=== PATIENT | male | born 1940 | race Caucasian/White ===

== ENCOUNTER 2019-02-24 15:24 | Inpatient (IN) | payer MEDICARE ==
[~2019-02-24] VITALS: Ht 180.3 cm; Wt 93.8 kg
[2019-02-24 15:28] VITALS: BP 105/58; PULSE 67; TEMP 98.7
[2019-02-24] MEDS ORDERED: AMBIEN 10MG10 MG PO (16:14)
[2019-02-24] MEDS ORDERED: BACTRIM DS 8001 TAB PO (16:17)
[2019-02-24] MEDS ORDERED: PROSCAR 5MG5 MG PO (16:19)
[2019-02-24] MEDS ORDERED: ZANTAC 150MG T150 MG PO (16:20)
[2019-02-24] MEDS ORDERED: ZOCOR 20MG20 MG PO (16:21)
[2019-02-24] MEDS ORDERED: PROZAC 20MG20 MG PO (16:27)
[2019-02-24 16:57] LABS: TROPONIN-I 0.059 ng/mL (0.000-0.035)
[2019-02-24 17:11] LABS: TSH w REFLEX 2.67 uIU/mL (0.465-4.680)
--- NOTE | 2019-02-24 19:08 | NUR ---
PT ADMITTED TO FLOOR AT APPROX 1515. PT WALKED FROM THE EMS GURNEY TO BED IN ROOM WITHOUT ISSUE. PT PLEASENT AND COOPERATIVE WITH CARES. NO C/O PAIN. IV FLUIDS RUNNING, TELE IMPLAMENTED. NO ISSUES OR CONSERNS VOICED.
[2019-02-24 20:00] VITALS: BP 114/60; PULSE 70; TEMP 98.6
--- NOTE | 2019-02-24 21:25 | NUR ---
Patient is awake and alert, just up to shower, shave and brush teeth, was able to do so independently. Denies pain or shortness of breath. Respirations are even and nonlabored. Patient requested ice cream and this was taken to patient.
[2019-02-24 23:20] VITALS: BP 91/40; PULSE 66; TEMP 98.4
[2019-02-25 04:00] VITALS: BP 92/60; PULSE 65; TEMP 98.3
--- NOTE | 2019-02-25 05:23 | NUR ---
IV fluids replaced. Patient is resting in bed soundly. Respirations are even and nonlabored. Call light and personal belongings are within reach.
[2019-02-25 06:20] LABS: BASO % 0.4 % (0.0-2.0); EOS % 0.6 % (0-4.0); GRAN % 86.6 % (42.2-75.2); HEMATOCRIT 38.9 % (42.0-52.0); HEMOGLOBIN 13.6 g/dl (13.5-18.0); LYMPH # 0.5 (1.2-3.4); LYMPH % 6.7 % (20.0-51.0); MEAN CELL VOLUME 90 fl (80.0-100.0); MEAN CORPUSCULAR HEMOGLOBIN 32 pg (27.0-31.0); MEAN CORPUSCULAR HGB CONC 35 g/dl (33.0-37.0); MEAN PLATELET VOLUME 9.4 fl (7.4-10.4); MONO # 0.4 (0.1-0.6); MONO % 5.1 % (1.7-9.3); PLATELET COUNT 90 K/mm3 (130-400); RED BLOOD COUNT 4.31 M/mm3 (4.20-5.60); REDCELL DISTRIBUTION WIDTH-CV 12.6 % (11.5-14.5)
--- NOTE | 2019-02-25 06:27 | NUR ---
Received call from lab reporting positive blood culture for rods. Notified provider asset protection representative, stated he will review later as he received antibiotic yesterday and should cover for 24 hours.
[2019-02-25 06:30] LABS: CALCIUM 8.4 mg/dL (8.4-10.2); CREATININE, serum 1.06 (0.66-1.25); MAGNESIUM 1.6 mg/dL (1.6-2.3); POTASSIUM 3.8 mmol/L (3.4-5.0)
[2019-02-25 06:40] LABS: TROPONIN-I 0.034 ng/mL (0.000-0.035)
[2019-02-25 07:05] VITALS: BP 103/61; PULSE 60; TEMP 98.7
--- NOTE | 2019-02-25 08:00 | NUR ---
Assessment complete. Pt resting in bed, A&O x 4. Breath sounds CTAB. BS active x 4. Pt denies pain at this time. IVF's infusing per orders through right AC site without s/s of complications. POC reviewed with pt. No further needs reported. Call light in reach.
--- NOTE | 2019-02-25 09:09 | NUR ---
PAUL attended clinical rounds. The patient has an infection in the blood. Plan is for a belly scan today. PAUL then followed up with the patient to discuss discharge plan. The patient resides at [facility] in [facility]. He reports independence with ADLs and does not have any DME. The patient's PCP is Dr. Kirti Almonte and he receives his medications at [facility]. He reports no difficulties obtaining his meds. The patient does not have advanced directives in EMR, but he states that he does have them completed and at home. He states his DPOA-HC is his daughter, Elaine Gomes (ph#[phone]). Elaine lives in [place]. The patient plans to return back to [facility] upon discharge. The patient states that he may be interested in getting a walker prior to discharge. PT has been ordered. PAUL contacted and updated Soumya at [facility]. SW to fax updates to [facility] and will continue to follow.
[2019-02-25 11:24] VITALS: BP 132/69; PULSE 61; TEMP 97.7
--- NOTE | 2019-02-25 15:30 | NUR ---
Pt ambulating in hallway with PT, steady gait with walker.
[2019-02-25 16:11] VITALS: BP 127/61; PULSE 65; TEMP 98.3
--- NOTE | 2019-02-25 18:00 | NUR ---
Pt resting in bed, watching TV, denies pain or needs. Call light in reach.
[2019-02-25 20:00] VITALS: BP 129/72; PULSE 68; TEMP 98.1
--- NOTE | 2019-02-25 21:01 | NUR ---
Resting in bed. Assessment completed. Left lower lobe diminished, otherwise clear. Pulses strong throughout. No edema noted. Denies pain at this time. Provided with PRN ambien. Denies other needs. Call light in reach.
--- NOTE | 2019-02-25 23:30 | NUR ---
Resting in bed. Denies needs. Denies pain. Call light in reach.
[2019-02-25 23:33] VITALS: BP 120/73; PULSE 63; TEMP 98.6
[2019-02-26 03:41] VITALS: BP 127/66; PULSE 58; TEMP 98.1
--- NOTE | 2019-02-26 06:19 | NUR ---
Patient bradycardic this AM to 48 for short amount of time. Pulse increased with arousal. No symptoms. Otherwise uneventful night. Resting in bed this AM. Denies needs.
[2019-02-26 06:43] LABS: BASO % 0.5 % (0.0-2.0); EOS # 0.1 (0.0-0.7); EOS % 3.2 % (0-4.0); GRAN % 68.5 % (42.2-75.2); HEMATOCRIT 39.4 % (42.0-52.0); HEMOGLOBIN 13.6 g/dl (13.5-18.0); LYMPH # 0.9 (1.2-3.4); LYMPH % 19.6 % (20.0-51.0); MEAN CELL VOLUME 92 fl (80.0-100.0); MEAN CORPUSCULAR HEMOGLOBIN 32 pg (27.0-31.0); MEAN CORPUSCULAR HGB CONC 35 g/dl (33.0-37.0); MEAN PLATELET VOLUME 9.8 fl (7.4-10.4); MONO # 0.4 (0.1-0.6); PLATELET COUNT 85 K/mm3 (130-400); RED BLOOD COUNT 4.28 M/mm3 (4.20-5.60); REDCELL DISTRIBUTION WIDTH-CV 12.7 % (11.5-14.5)
[2019-02-26 07:01] LABS: CALCIUM 8.4 mg/dL (8.4-10.2); CREATININE, serum 0.93 (0.66-1.25); POTASSIUM 3.8 mmol/L (3.4-5.0)
--- NOTE | 2019-02-26 07:06 | NUR ---
Report given to GERRY Doll.
[2019-02-26 07:53] VITALS: BP 151/80; PULSE 57; TEMP 97.5
[2019-02-26] MEDS ORDERED: LEVAQUIN 5500 MG/TA1 PO (09:31)
--- NOTE | 2019-02-26 10:00 | NUR ---
PT REQUESTED TO TAKE A SHOWER PRIOR TO DISCHARGE. IV AND TELE REMOVED.
--- NOTE | 2019-02-26 10:03 | NUR ---
The patient is to discharge today, 02/26, back to [facility]. SW met with the patient to follow up on his interest of getting a walker and PT's recommendation of front wheeled walker vs four wheeled walker. The patient reports that he has decided to hold off on getting a walker for now. The patient's daughter, Elaine, to provide transportation. PAUL contacted and faxed discharge orders to [facility] at [facility]. No additional needs at this time.
--- NOTE | 2019-02-26 11:04 | NUR ---
First visit from the speech therapy director. No needs right now.
--- NOTE | 2019-02-26 11:30 | NUR ---
DISCHARGE EDUCATION PROVIDED. PT DAUGHTER DID REQUEST MEDS TO BE CALLED INTO [facility] IN [place]. THIS NURSE DID CALL [facility] TO PHARMACY.
--- NOTE | 2019-02-26 11:40 | NUR ---
PT LEAVING FACILITY AT THIS TIME. PT DUAGHTER ACCOMPANING. DENIED NEED FOR STAFF ESCORT.
== END 2019-02-26 11:40 | DRG 682 ==
LOC: MEDICAL 15:24
PROVIDERS: ADMIT Hospitalist
DX: N17.9 Acute kidney failure, unspecified (principal); I21.A1 Myocardial infarction type 2; E87.2 Acidosis; I48.0 Paroxysmal atrial fibrillation; E78.5 Hyperlipidemia, unspecified; K21.9 Gastro-esophageal reflux disease without esophagitis; F32.9 Major depressive disorder, single episode, unspecified; N40.0 Benign prostatic hyperplasia without lower urinary tract symptoms; G47.00 Insomnia, unspecified; D72.819 Decreased white blood cell count, unspecified; D47.3 Essential (hemorrhagic) thrombocythemia; R79.1 Abnormal coagulation profile
CPT/HCPCS: 99232-AI; 99239; G0378; G0379; J0744; J1650; J7030; Q9967

== ENCOUNTER → 2019-03-10 | Outpatient (REF) ==
[~2019-03-10] MED LIST: AMBIEN 10MG10 MG PO; BACTRIM DS 8001 TAB PO; LEVAQUIN 5500 MG/TA1 PO; PROSCAR 5MG5 MG PO; PROZAC 20MG20 MG PO; ZANTAC 150MG T150 MG PO; ZOCOR 20MG20 MG PO
== END ==
LOC: COL.CARD 11:35
DX: Z01.818 Encounter for other preprocedural examination (principal)

== ENCOUNTER 2020-12-07 13:46 | Inpatient (IN) | payer MEDICARE ==
[~2020-12-07] VITALS: Ht 180.3 cm; Wt 89.3 kg
[2020-12-07] VITALS (11 sets, daily range): BP systolic 131–149; BP diastolic 76–90; PULSE 56–83; TEMP 97.1–98
[~2020-12-07 13:46] MED LIST changes: +ASPIRIN 81M81 MG/TA2 PO; +LIPITOR 40MG TA40 MG PO
[2020-12-07] MEDS ORDERED: FLOMAX 0.40.4 MG/CAP PO (15:07)
[2020-12-07] MEDS ORDERED: CEPHALEXIN500 M1 PO (15:08)
[2020-12-07] MEDS ORDERED: EC-NAPROSYN500 MG PO (15:08)
[2020-12-07] MEDS ORDERED: PEPCID 20MG TAB20 MG PO (15:09)
[2020-12-07] MEDS ORDERED: ELIQUIS 5MG PO (15:10)
--- NOTE | 2020-12-07 17:30 | NUR ---
PATIENT ADMITED INTO ROOM 327 POST OP TURP. A&O. VSS. NO C/O PAIN OR NAUSEA. RECINOS TO DD WITH CBI INFUSING AT MOD RATE AND URINE IS PALE YELLOW. IV FLUIDS INFUSING INTO RIGHT HAND IV. HEAD TO TOE ASSESSMENT COMPLETE. PATIENT LOOKING AT MENU WITH FAMILY. ORIENTED TO ROOM. CALL LIGHT IN REACH. NO OTHER NEEDS.
--- NOTE | 2020-12-07 22:12 | NUR ---
PATIENT ON TELEMETRY WITH HR DOWN TO 30'S AND COMPLETE HR BLOCK. DR AYALA MADE AWARE, ORDERED TO CONSULT HOSPITOLIST. HOSPITOLIST PETRA YUEN CONSULTED, EKG ORERED. PATIENT RESTING CONFORTABLY IN BED DENIES ANY CHEST PAIN, DIZZINESS OR PALPITATION. WILL CONTINUE TO MONITOR. VSS.
[2020-12-07 23:12] LABS: BASO % 0.4 % (0.0-2.0); EOS # 0.3 (0.0-0.7); EOS % 4.3 % (0-4.0); GRAN # 3.8 (1.4-6.5); GRAN % 55.3 % (42.2-75.2); HEMATOCRIT 42.7 % (42.0-52.0); HEMOGLOBIN 15.2 g/dl (13.5-18.0); LYMPH # 2.3 (1.2-3.4); LYMPH % 32.6 % (20.0-51.0); MEAN CELL VOLUME 87 fl (80.0-100.0); MEAN CORPUSCULAR HEMOGLOBIN 31 pg (27.0-31.0); MEAN CORPUSCULAR HGB CONC 36 g/dl (33.0-37.0); MEAN PLATELET VOLUME 9.5 fl (7.4-10.4); MONO # 0.5 (0.1-0.6); MONO % 7.1 % (1.7-9.3); PLATELET COUNT 114 K/mm3 (130-400); RED BLOOD COUNT 4.91 M/mm3 (4.20-5.60); REDCELL DISTRIBUTION WIDTH-CV 12.4 % (11.5-14.5)
[2020-12-07 23:31] LABS: ALBUMIN 3.3 gm/dL (3.5-5.0); BILIRUBIN,TOTAL 0.9 mg/dL (0.0-1.0); CREATININE, serum 0.92 (0.66-1.25); MAGNESIUM 1.8 mg/dL (1.6-2.3); POTASSIUM 3.9 mmol/L (3.4-5.0); TOTAL PROTEIN 6.2 gm/dL (6.4-8.2)
[2020-12-07 23:59] LABS: TSH w REFLEX 4.77 uIU/mL (0.465-4.680)
[2020-12-08 03:26] VITALS: BP 128/67; PULSE 51; TEMP 97.5
[2020-12-08 06:58] LABS: CALCIUM 8.5 mg/dL (8.4-10.2); CREATININE, serum 0.78 (0.66-1.25); MAGNESIUM 1.9 mg/dL (1.6-2.3); POTASSIUM 4.6 mmol/L (3.4-5.0)
[2020-12-08 07:30] VITALS: BP 141/70; PULSE 52; TEMP 97.8
--- NOTE | 2020-12-08 08:00 | NUR ---
PATIENT IS A&O. VSS WITH HR IN THE 50'S ON TELE. PATIENT IS NPO FOR PACEMAKER LATER TODAY. IV FLUIDS INFUSING VIA PUMP INTO RIGHT HAND. RECINOS TO DD WITH MOD AMOUNTS OF BLOODY URINE NOTED. CBI INFUSING AT MOD RATE. PLAN IS TO MONITOR AND POTENTIALLY KEEP CBI INFUSING ALL DAY TODAY, WILL MONITOR. HEAD TO TOE ASSESSMENT COMPLETE. AM MEDS GIVEN WITH A FEW SIPS. NO OTHER NEEDS AT THIS TIME. CALL LIGHT IN REACH.
--- NOTE | 2020-12-08 10:30 | NUR ---
PATIENT OUT OF SHOWER. HOSPITALIST TEAM ROUNDING, SEE ORDERS. PATIENT IS STILL NPO FOR PLANNED PACEMAKER LATER TODAY. IV FLUIDS INFUSING VIA PUMP. CBI AT MOD RATE WITH BLOODY URINE NOTED IN RECINOS. PATIENT DOING WELL. NO COMPLAINTS.
--- NOTE | 2020-12-08 10:30 | NUR ---
Initial visit; Patient thanked Funeral Home Assistant for looking in on him and offering God's blessings though declined spiritual care at this time.
--- NOTE | 2020-12-08 11:05 | NUR ---
ECHO AT BEDSIDE.
--- NOTE | 2020-12-08 11:48 | NUR ---
Manager Functional met with the patient to complete intake. The patient lives alone in [facility]. The patient denies DME use and is independent. The patient's PCP is Dr. Kirti Almonte and patient receives medications from [facility] with no difficulties. The patient does not have advanced directives in the EMR but believes they are complete and designate his daughters, Elaine and Debi. The patient is no and Elaine and Debi are his only children. The patient will return home at discharge and Debi will provide transporation. *Discharge disposition: Home
--- NOTE | 2020-12-08 11:52 | NUR ---
PATIENT GOING DOWN TO SENIOR INTEGRATION ARCHITECT FOR PACEMAKER. CONSENT ON CHART. RECINOS EMPTIED AND NEW BAG OF CBI INFUSING. URINE STILL BLOODY, NO CLOTS. PATIENT OFF FLOOR.
[2020-12-08 12:18] VITALS: BP 158/83; PULSE 57
--- NOTE | 2020-12-08 12:19 | NUR ---
SEE MERGE DOCUMENTATION FOR MEDICATION ADMINISTRATION AND INTRA/POST PROCEDURE SEDATION ASSESSMENT.
[2020-12-08 14:10] VITALS: BP 140/67; PULSE 61
--- NOTE | 2020-12-08 14:10 | NUR ---
PATIENT BACK IN ROOM 327 POST PACEMAKER PLACEMENT. LEFT CHEST DRESSING IS CD&I WITH SLING TO LUE. VSS WITH TELE INPLACE. HEAD TO TOE WNL. DAUGHTER AT BEDSIDE. PATIENT LOOKING AT MENU. CALL LIGHT IN REACH.
[2020-12-08 14:25] VITALS: BP 124/71; PULSE 59
[2020-12-08 19:31] VITALS: BP 127/79; PULSE 60; TEMP 98
[2020-12-09 00:01] VITALS: BP 125/76; PULSE 94; TEMP 97.7
[2020-12-09 04:10] VITALS: BP 143/91; PULSE 61; TEMP 98.6
--- NOTE | 2020-12-09 05:35 | NUR ---
PATIENT HAD AN UNEVENTFULL NIGHT. SLEEP WELL ALL NIGHT. CBI WITH LIGHT PINK COLOR URINE. LEFTS CHEST PACEMAKER SITE INTACT WITH NO DRAINAGE, ICE PACK APPLIED. PACING ON TELEMONITOR. VSS. CALL IN REACH. WILL CONTINUE TO MONITOR.
[2020-12-09 09:07] VITALS: BP 141/84; PULSE 65; TEMP 97.6
[2020-12-09 12:02] VITALS: BP 148/73; PULSE 63; TEMP 98.1
--- NOTE | 2020-12-09 13:17 | NUR ---
1230 CATHETER REMOVED ORDERED. PT TOLERATED REMOVAL WELL. IV AND TELE MONITOR REMOVED. DISCHARGE INSTRUCTIONS REVIEWED WITH PT. ALL QUESTIONS ANSWERED. DAUGHTER AT THE BESIDE TO TRANSPORT PT HOME.
== END 2020-12-09 13:00 | disposition home or self-care (01) | DRG 713 ==
LOC: SDCO 13:46 → SURG 17:28 → SDCO 12-08 09:07 → SURG 12-08 09:08 → SDCO 12-08 09:08 → SURG 12-08 09:08
PROVIDERS: Student in an Organized Health Care Education/Training Program; ADMIT Urology
PROC: 0VT08ZZ Resection of Prostate, Via Natural or Artificial Opening Endoscopic (ICD-10-PCS; principal; 2020-12-07 16:00)
DX: N40.1 Benign prostatic hyperplasia with lower urinary tract symptoms (principal); N13.8 Other obstructive and reflux uropathy; I44.2 Atrioventricular block, complete; I25.10 Atherosclerotic heart disease of native coronary artery without angina pectoris; E78.5 Hyperlipidemia, unspecified; J02.9 Acute pharyngitis, unspecified; R00.1 Bradycardia, unspecified; K21.9 Gastro-esophageal reflux disease without esophagitis; D69.6 Thrombocytopenia, unspecified; G47.00 Insomnia, unspecified; F32.9 Major depressive disorder, single episode, unspecified; Z79.899 Other long term (current) drug therapy; Z79.01 Long term (current) use of anticoagulants; Z79.82 Long term (current) use of aspirin
CPT/HCPCS: OP; C1769; C1785; C1894; C1898; J0690; J2250; J2270; J2704; J3010; J3475; J3480; J7030; J7120

== ENCOUNTER 2023-06-28 09:00 | Outpatient (RCR) | payer MEDICARE ==
[~2023-06-28 09:00] MED LIST changes: +CEPHALEXIN500 M1 PO; +EC-NAPROSYN500 MG PO; +ELIQUIS 5MG PO; +FLOMAX 0.40.4 MG/CAP PO; +PEPCID 20MG TAB20 MG PO
== END 2023-07-03 | disposition home or self-care (01) ==
LOC: WSOT
DX: M79.601 Pain in right arm (principal)

== ENCOUNTER 2023-07-05 08:55 | Outpatient (RCR) | payer MEDICARE | END 2023-08-01 | disposition home or self-care (01) | LOC: WSOT | DX: M25.531 Pain in right wrist (principal); M79.601 Pain in right arm ==

== ENCOUNTER 2023-10-05 13:24 | Emergency (ER) | payer MEDICARE ==
[~2023-10-05] VITALS: Ht 180.3 cm; Wt 84.1 kg
[2023-10-05 13:26] VITALS: TEMP 98
[2023-10-05] MEDS ORDERED: NS 1,000 ML IV ONE (13:45)
[2023-10-05 14:33] LABS: BASO % 0.2 % (0.0-2.0); EOS # 0.2 K/mm3 (0.0-0.7); GRAN # 3.5 K/mm3 (1.4-6.5); GRAN % 70.3 % (42.2-75.2); HEMATOCRIT 41.3 % (42.0-52.0); HEMOGLOBIN 14.9 g/dl (13.5-18.0); LYMPH % 19.6 % (20.0-51.0); MEAN CELL VOLUME 88 fl (80.0-100.0); MEAN CORPUSCULAR HEMOGLOBIN 32 pg (27-31); MEAN CORPUSCULAR HGB CONC 36 g/dl (33.0-37.0); MEAN PLATELET VOLUME 9.8 fl (7.4-10.4); MONO # 0.3 K/mm3 (0.1-0.6); MONO % 6.7 % (1.7-9.3); PLATELET COUNT 102 K/mm3 (130-400); RED BLOOD COUNT 4.68 M/mm3 (4.20-5.60); REDCELL DISTRIBUTION WIDTH-CV 12.3 % (11.5-14.5)
[2023-10-05 14:48] LABS: ALBUMIN 3.2 g/dL (3.4-4.8); CALCIUM 9.1 mg/dL (8.4-10.2); CREATININE, serum 0.92 mg/dL (0.72-1.25); POTASSIUM 3.9 mEq/L (3.5-4.5); TOTAL PROTEIN 6.1 g/dl (6.2-8.1)
[2023-10-05] MEDS ORDERED: Iohexol 300 - 100 ML VIAL IV ONE (15:47)
[2023-10-05] MEDS ORDERED: NS 100 ML IV SCH (15:47)
[2023-10-05 16:21] LABS: PH 5.5 (5.0-8.5); URINE APPEARANCE CLEAR (CLEAR/HAZY); URINE BLOOD NEGATIVE (NEGATIVE); URINE COLOR YELLOW (YELLOW); URINE GLUCOSE NEGATIVE (NEGATIVE); URINE KETONE TRACE (NEGATIVE); URINE NITRATE NEGATIVE (NEGATIVE); URINE PROTEIN(semi-quant) NEGATIVE (NEGATIVE)
[2023-10-05 16:27] LABS: COLLECTION METHOD CLEAN CATCH
[2023-10-05 17:13] VITALS: BP 142/78; PULSE 70
== END 2023-10-05 17:15 | disposition home or self-care (01) ==
LOC: COL.ER 13:24
PROVIDERS: Physician Assistant
DX: M54.50 Low back pain, unspecified (principal)
CPT/HCPCS: J7030; Q9967

== ENCOUNTER 2023-11-22 08:31 | Outpatient (RCR) | payer MEDICARE ==
[2023-11-27] MEDS ORDERED: FLEXERIL 1010 MG/TAB PO (09:48)
[2023-11-27] MEDS ORDERED: PERCOCET 325 MG1 TA2 PO (09:48)
[2023-11-29] MEDS ORDERED: ENTRESTO 24 MG1 EACH PO (03:30)
[2023-11-29] MEDS ORDERED: CRESTOR 10MG10 MG PO (03:32)
[2023-11-29] MEDS ORDERED: ASPIRIN 81M81 MG/TA2 PO (03:32)
[2023-11-29] MEDS ORDERED: FLONASE NASAL S16 GM NS (03:34)
[2023-11-29] MEDS ORDERED: PEPCID40 MG PO (03:34)
[2023-11-29] MEDS ORDERED: DOXYCYCLINE 10100 MG PO (03:35)
[2023-12-01] MEDS ORDERED: PERCOCET 325 MG1 TA2 PO (09:12)
[2023-12-02] MEDS ORDERED: ASPI325T6 PO (09:04)
[2023-12-02] MEDS ORDERED: VITAMIN C500 MG PO (09:05)
[2023-12-02] MEDS ORDERED: OSCAL 500 TAB500 MG PO (09:05)
[2023-12-02] MEDS ORDERED: DUO-KAPS1 CAP PO (09:06)
[2023-12-02] MEDS ORDERED: TOPROL XL 25MG25 MG PO (09:08)
[2023-12-02] MEDS ORDERED: TYLENOL 500MG500 MG PO (09:10)
[2023-12-02] MEDS ORDERED: SENEXON-S 50-81 EACH PO (09:11)
[2023-12-02] MEDS ORDERED: ROXICODONE 55 MG/TAB PO ×2 (09:12→13:08)
[2023-12-02] MEDS ORDERED: DAZIDOX10 MG PO (09:13)
== END 2023-12-01 ==
LOC: WSPT
DX: M54.2 Cervicalgia (principal)

== ENCOUNTER 2023-11-29 01:52 | Inpatient (IN) | payer MEDICARE ==
[2023-11-29] VITALS (12 sets, daily range): BP systolic 99–146; BP diastolic 62–88; PULSE 71–95; TEMP 97.7–98.7
[~2023-11-29] VITALS: Ht 180.3 cm; Wt 79.5 kg
[~2023-11-29 01:52] MED LIST changes: +FLEXERIL 1010 MG/TAB PO; +PERCOCET 325 MG1 TA2 PO
[2023-11-29] MEDS ORDERED: NS 500 ML IV ONE (02:15)
[2023-11-29] MEDS ORDERED: fentaNYL 50 MCG/ML 2 ML VIAL IV ONE (02:15)
[2023-11-29 02:24] LABS: BASO % 0.3 % (0.0-2.0); EOS # 0.1 K/mm3 (0.0-0.7); EOS % 0.9 % (0.0-4.0); GRAN # 8.9 K/mm3 (1.4-6.5); HEMATOCRIT 44.5 % (42.0-52.0); HEMOGLOBIN 15.2 g/dl (13.5-18.0); LYMPH # 0.7 K/mm3 (1.2-3.4); LYMPH % 6.8 % (20.0-51.0); MEAN CELL VOLUME 91 fl (80.0-100.0); MEAN CORPUSCULAR HEMOGLOBIN 31 pg (27-31); MEAN CORPUSCULAR HGB CONC 34 g/dl (33.0-37.0); MEAN PLATELET VOLUME 9.2 fl (7.4-10.4); MONO # 0.6 K/mm3 (0.1-0.6); MONO % 5.6 % (1.7-9.3); PLATELET COUNT 153 K/mm3 (130-400); REDCELL DISTRIBUTION WIDTH-CV 12.9 % (11.5-14.5)
[2023-11-29 02:28] LABS: INR 1.2 (0.8-3.0); PROTHROMBIN TIME 12.9 SECONDS (9.7-12.8)
[2023-11-29 02:30] LABS: PARTIAL THROMBOPLASTIN TIME 29.3 SECONDS (26.0-37.0)
[2023-11-29 02:42] LABS: ALBUMIN 3.5 g/dL (3.4-4.8); BILIRUBIN,TOTAL 1.6 mg/dL (0.2-1.2); CREATININE, serum 0.87 mg/dL (0.72-1.25); MAGNESIUM 1.8 mg/dL (1.6-2.6); POTASSIUM 4.2 mEq/L (3.5-4.5); TOTAL PROTEIN 6.7 g/dl (6.2-8.1)
[2023-11-29] MEDS ORDERED: Naloxone 0.4 MG/ML VIAL IV PRN (03:15)
[2023-11-29] MEDS ORDERED: D5 1/2 NS 1,000 ML IV SCH (03:15)
[2023-11-29] MEDS ORDERED: Morphine 4 MG/ML VIAL IV PRN (03:15)
[2023-11-29] MEDS ORDERED: oxyCODONE 5 MG TAB PO PRN (03:15)
[2023-11-29] MEDS ORDERED: ENTRESTO 24 MG1 EACH PO (03:30)
[2023-11-29] MEDS ORDERED: CRESTOR 10MG10 MG PO (03:32)
[2023-11-29] MEDS ORDERED: ASPIRIN 81M81 MG/TA2 PO (03:32)
[2023-11-29] MEDS ORDERED: PEPCID40 MG PO (03:34)
[2023-11-29] MEDS ORDERED: FLONASE NASAL S16 GM NS (03:34)
[2023-11-29] MEDS ORDERED: DOXYCYCLINE 10100 MG PO (03:35)
[2023-11-29 04:04] LABS: COLLECTION METHOD CLEAN CATCH
[2023-11-29 04:10] LABS: URINE APPEARANCE CLEAR (CLEAR/HAZY); URINE BLOOD NEGATIVE (NEGATIVE); URINE COLOR YELLOW (YELLOW); URINE GLUCOSE NEGATIVE (NEGATIVE); URINE KETONE 1+ (NEGATIVE); URINE NITRATE NEGATIVE (NEGATIVE); URINE PROTEIN(semi-quant) NEGATIVE (NEGATIVE)
[2023-11-29] MEDS ORDERED: Acetaminophen 500 MG TAB PO SCH (04:10)
--- NOTE | 2023-11-29 05:20 | NUR ---
PT ARRIVED TO ROOM 326 FROM ED VIA STRETCHER & TRANSFERED TO BED VIA SLIDEBOARD. HERE FOR RT HIP FX. A&O X4. VSS ON ROOM AIR. PT DENIES PAIN TO THE RT HIP, STATES HIS PAIN IS IN HIS BACK FROM HIS RECENT COMPRESSION FX, RATES PAIN 3/10 & DENIES THE NEED FOR PAIN MEDS AT THIS TIME. RECINOS TO DD WITH VICKIE OUTPUT. IVF INFUSING TO RT WRIST AT 75MLS/HR. BLE SCDS ON & ALICE TO LLE. PT EDUCATED ON NPO STATUS. ORIENTED TO ROOM. PT DENYING FURTHER NEEDS. CALL LIGHT IN REACH.
--- NOTE | 2023-11-29 07:45 | NUR ---
Patient laying in bed, A&O VSS. IV CDI, fluids infusing. Aviles intact. Right leg elevated on pillow. NPO for possible procedure. Call light within reach. Bed alarm on
[2023-11-29] MEDS ORDERED: Pantoprazole 40 MG in NS 10 ML IV SCH (09:00)
[2023-11-29] MEDS ORDERED: Famotidine 20 MG TAB PO SCH (09:00)
[2023-11-29] MEDS ORDERED: Doxycycline Monohydrate 100 MG CAP PO SCH (09:00)
[2023-11-29] MEDS ORDERED: FLUoxetine 20 MG CAP PO SCH (09:00)
--- NOTE | 2023-11-29 09:43 | NUR ---
out of school hours care worker met with pt and daughter, Elaine [phone] to discuss discharge planning. He reports to live at [facility]. He sees PETRA Abdul and obtains medications from [facility] with no difficulties. He is independent with ADLS and uses no DME. He reports to have a DPOA-HC listing his daughters at [facility]. SW discussed pt likely having surgery today and then working with PT/OT to ensure he is safe to return home. They verbalized understanding and have no further questions. PAUL called [facility] and asked for them to fax pt's DPOA if they have it. Message will be passed to pt's nurse. Discharge Plan: tbd, return to [facility]
--- NOTE | 2023-11-29 11:10 | NUR ---
Patient to room 330 from the OR with at the bedside. Sleeping, alert with touch. VSS 1L NC O2. IV CDI, fluids by gravity. Post op VS monitored. Lap sitesx6 CDI. Aviles intact. Nurse oriented the on location, room and call light. No further needs expressed. Call light within reach
--- NOTE | 2023-11-29 11:20 | NUR ---
property worker called [facility] Director, Kirti Alfred to obtain DPOA-HC. She reports she will look and send it if they have it. SW inquired about if they could meet pt's needs after surgery and if he wanted to return. She reports they do not do fci services, but if he is not more than a 2 person assist they could manage that. PAUL reports she will note this to be aware after therapy sees him. PAUL faxed updates. Discharge Plan: tbd, surgery today
[2023-11-29] MEDS ORDERED: Midazolam 2 MG/2 ML VIAL ONE (11:57)
[2023-11-29] MEDS ORDERED: fentaNYL 50 MCG/ML 5 ML VIAL ONE (11:57)
[2023-11-29] MEDS ORDERED: Lidocaine PF 2% (20 MG/ML) 5 ML VIAL ONE (11:58)
[2023-11-29] MEDS ORDERED: NS 10 ML IV ONE ×2 (11:59→12:12)
[2023-11-29] MEDS ORDERED: LR 1,000 ML IV SCH (12:00)
[2023-11-29] MEDS ORDERED: dexAMETHasone 10 MG/ML VIAL ONE (12:11)
[2023-11-29] MEDS ORDERED: Ondansetron 4 MG/2 ML VIAL ONE (12:58)
[2023-11-29] MEDS ORDERED: Phenylephrine 10 MG/ML VIAL ONE (13:00)
[2023-11-29] MEDS ORDERED: Topical Skin Adhesive 1 EACH (1 ML) TOP ONE (13:11)
[2023-11-29] MEDS ORDERED: Magnes Hydrox (MOM) 80 MG/ML 30 ML CUP PO PRN (14:00)
[2023-11-29] MEDS ORDERED: NS 1,000 ML IV SCH (14:00)
[2023-11-29] MEDS ORDERED: Ondansetron 4 MG/2 ML VIAL IV PRN (14:00)
[2023-11-29] MEDS ORDERED: HYDROmorphone 1 MG/1 ML SYRINGE [PACU/SDC ONLY] IV PRN (14:30)
--- NOTE | 2023-11-29 14:55 | NUR ---
Patient to room 326 from the OR. A&O VSS 1L NC O2. Post op VS monitored. Right side hip incisions CDI, ice applied. Aviles intact. Right leg elevated. Nurse oriented the patient to location, call light and room. No further needs expressed. Call light within reach. Bed alarm on
[2023-11-29] MEDS ORDERED: ceFAZolin 1 G in Water For Injection,Sterile 10 ML IV SCH (19:00)
--- NOTE | 2023-11-29 20:58 | NUR ---
DR. Johnny ANDREWS WAS NOTIFIED THAT THE PTS BP WAS 99/56 AND ENTRESTO WAS ORDERED FOR THIS EVENING. PER DR. ANDREWS OKAY AT THIS TIME TO GIVE THE ENTRESTO DUE TO THE FACT THAT THE PTS MAP IS WNL. THE MEDICATION WILL BE GIVEN.
[2023-11-29] MEDS ORDERED: Melatonin 3 MG TAB PO PRN (21:00)
[2023-11-29] MEDS ORDERED: Atorvastatin 20 MG TAB PO SCH (21:00)
[2023-11-29] MEDS ORDERED: Sennosides/Docusate 8.6-50 MG TAB PO SCH (21:00)
[2023-11-29] MEDS ORDERED: Rosuvastatin 10 MG **** subs to Atorvastatin 20 MG PO SCH (21:00)
[2023-11-29] MEDS ORDERED: Calcium Carbonate 500 MG TAB PO SCH (23:00)
--- NOTE | 2023-11-29 23:23 | NUR ---
NURSING SHIFT ASSESSMENT COMPLETED. THE PATIENT WAS ALERT AND ORIENTED UPON ASSESSMENT. THE PATIENT DENIED PAIN OR DISCOMFORT. SCD AND ALICE HOSE IN PLACE. ICE TO THE RIGHT HIP AND RLE ELEVATED. THE PLAN OF CARE AND AVAILABLE PAIN MEDICATION REVIEWED. THE PATIENT VERBALIZED UNDERSTANDING. CALL LIGHT WITHIN REACH WELL THE PTS PERSONAL BELONGINGS. BED IN LOW POSITION AND THE BED ALARM IS ON.
[2023-11-30] VITALS (12 sets, daily range): BP systolic 90–109; BP diastolic 58–72; PULSE 67–80; TEMP 97.5–98.2
[2023-11-30 06:40] LABS: BASO % 0.1 % (0.0-2.0); EOS % 0.3 % (0.0-4.0); GRAN # 6.3 K/mm3 (1.4-6.5); GRAN % 85.8 % (42.2-75.2); LYMPH # 0.6 K/mm3 (1.2-3.4); LYMPH % 8.2 % (20.0-51.0); MEAN CELL VOLUME 91 fl (80.0-100.0); MEAN CORPUSCULAR HGB CONC 35 g/dl (33.0-37.0); MEAN PLATELET VOLUME 9.6 fl (7.4-10.4); MONO # 0.4 K/mm3 (0.1-0.6); MONO % 5.2 % (1.7-9.3); PLATELET COUNT 124 K/mm3 (130-400); RED BLOOD COUNT 3.76 M/mm3 (4.20-5.60)
[2023-11-30 06:49] LABS: HEMATOCRIT 34.2 % (42.0-52.0); HEMOGLOBIN 11.9 g/dl (13.5-18.0); MEAN CORPUSCULAR HEMOGLOBIN 32 pg (27-31)
[2023-11-30 07:01] LABS: CALCIUM 8.2 mg/dL (8.4-10.2); CREATININE, serum 0.74 mg/dL (0.72-1.25); POTASSIUM 4.1 mEq/L (3.5-4.5)
[2023-11-30] MEDS ORDERED: Ascorbic Acid 500 MG TAB PO SCH (09:00)
[2023-11-30] MEDS ORDERED: Calcium Carbonate 500 MG TAB PO SCH ×2 (09:00)
--- NOTE | 2023-11-30 10:55 | NUR ---
PT SITTING UP IN CHAIR. ALERT AND OREINTEDX4. NO PAIN IN THE HIP BUT BUT HAS CHRONIC PAIN IN BACK. ASSESSED AND GAVE MORNING MEDS. PT GOT UP WITH THERAPY THIS MORNING. PT TOLERATING ORAL INTAKE. NO OTHER COMPLAINTS AT THIS TIME. CALL LIGHT WITHIN REACH.
[2023-11-30] MEDS ORDERED: Multivitamin TAB PO SCH (12:00)
--- NOTE | 2023-11-30 14:54 | NUR ---
Data: Spiritual care visit offered during [employer] rounds. Patient politely declined. Assessment: None at this time. Patient declined. Plan of Care: Chaplains will remain available as requested while Patient is admitted to this hospital.
--- NOTE | 2023-11-30 16:00 | NUR ---
upkeep worker reviewed PT recommendation of return to [place]. SW contacted [facility] whom expressed they would be able to take patient back but are concerned of him getting up without using his call light. SW met with patient's nurse whom expressed she spoke with Dr. Salguero whom is recommending SNF. SW met with patient and provided the Medicare.gov list of options. Patient was worried about the cost. SW explained Medicare covers 20 days at [facility]. Patient asked about [facility], SW explained if he were to return to [facility] he would be unable to receive daily therapy but at [facility] he would. Patient understood and wanted to review. PAUL met with Dr. Salguero whom expressed he would recommend the patient go to [facility] for daily rehab. upkeep worker met with patient again and explained the doctor's recommendation. Patient would like referral sent to [facility]. Patient reports he has been to [facility] before and liked it that would be his first choice. SW spoke with patient's daughter, Elaine, via telephone and provided the update above. Elaine is in agreement with discharge plan. PAUL spoke with [facility] and explained the doctor recommendation. They were in agreement to accept patient back after SNF rehab. SW faxed updates to [facility]. PAUL secure emailed referral to [facility] and [facility]. Discharge plan: SNF
--- NOTE | 2023-11-30 17:44 | NUR ---
TOOK OUT PT RECINOS, 10 CC IN BALLOON. 200 ML OF URINE IN BAG.
[2023-12-01] VITALS (11 sets, daily range): BP systolic 89–121; BP diastolic 55–76; PULSE 62–80; TEMP 97.7–98.2
[2023-12-01 06:31] LABS: HEMOGLOBIN 11.8 g/dl (13.5-18.0)
[2023-12-01 06:43] LABS: HEMATOCRIT 32.9 % (42.0-52.0)
[2023-12-01] MEDS ORDERED: PERCOCET 325 MG1 TA2 PO (09:12)
--- NOTE | 2023-12-01 09:35 | NUR ---
PT RESTING IN BED, ALERT AND ORIENTEDX4. RATES PAIN 2/10 IN BACK. NO PAIN IN RIGHT LEG. ASSESSED AND GAVE MORNING MEDS. GOT ORDER TO FIVE 10 MG OF OXYCODONE INSTEAD OF 5 EVERY MORNING. NO OTHER COMPLAINTS AT THIS TIME. CALL LIGHT WITHIN REACH.
[2023-12-01] MEDS ORDERED: Zolpidem 10 MG TAB PO PRN (10:00)
--- NOTE | 2023-12-01 10:13 | NUR ---
PT GOT UP WITH THERAPY TO THE BATHROOM AND VOIDED.
--- NOTE | 2023-12-01 18:08 | NUR ---
CHARGE NURSE STARTED NEW IV IN THE LEFT HAND TO DRAW BLOOD. 22 CANDICE LONGX.
[2023-12-01] MEDS ORDERED: Patient's Own Medication Item PO SCH (21:00)
[2023-12-02] VITALS (8 sets, daily range): BP systolic 91–117; BP diastolic 59–80; PULSE 62–112; TEMP 97.7–98.4
--- NOTE | 2023-12-02 00:49 | NUR ---
PT ALERT AND ORIENTED X3, SLIGHLY DROWSY AT START OF SHIFT, HE WAS GIVEN HIS SLEEPING AID FROM DAY NURSE AT 1830, PER REPORT THIS IS WHEN HE USUALLY TAKES IT. RT HIP SITES X3 CDI, VSS. PAIN RATED 4/10 WHICH IS IMPROVED FROM LAST NIGHT. PER REPORT HE WAS ABLE TO AMBULATE WITH THERAPY ON DAY SHIFT. DENIES FUTHER NEEDS AT THIS TIME. CALL LIGHT WITHIN REACH, FALL PRECAUTIONS IN PLACE.
--- NOTE | 2023-12-02 07:07 | NUR ---
Pt resting in bed, watching TV. Pt denies needs at this time. Call light in reach and bed alarm on.
--- NOTE | 2023-12-02 08:55 | NUR ---
Pt laying in bed. A&Ox4. VSS. S1S2. Clear lungs on RA. ABD round, soft, non-tender with audible bowel sounds. Palpable pulses with 4/5 strength in extremiteis. IV in L wrist is patent, INT. Removed IV from R forearm, infiltrated and Pt reports pain. Pt reports pain 5/10 in back. Tolerable. No further needs at this time. Call light in reach and bed alarm on.
[2023-12-02] MEDS ORDERED: oxyCODONE 5 MG TAB PO SCH (09:00)
[2023-12-02] MEDS ORDERED: ASPI325T6 PO (09:04)
[2023-12-02] MEDS ORDERED: OSCAL 500 TAB500 MG PO (09:05)
[2023-12-02] MEDS ORDERED: VITAMIN C500 MG PO (09:05)
[2023-12-02] MEDS ORDERED: DUO-KAPS1 CAP PO (09:06)
[2023-12-02] MEDS ORDERED: TOPROL XL 25MG25 MG PO (09:08)
[2023-12-02] MEDS ORDERED: TYLENOL 500MG500 MG PO (09:10)
[2023-12-02] MEDS ORDERED: SENEXON-S 50-81 EACH PO (09:11)
[2023-12-02] MEDS ORDERED: ROXICODONE 55 MG/TAB PO ×2 (09:12→13:08)
[2023-12-02] MEDS ORDERED: DAZIDOX10 MG PO (09:13)
--- NOTE | 2023-12-02 11:24 | NUR ---
PUAL secure emailed updates to [facility] and [facility]. quill worker followed up with [facility] and [facility] to determine if they are able to accept patient. Both facilities are able to accept. PAUL met with patient and provided the options between the two facilities. Patient chose [facility]. PAUL notified [facility] and [facility] of patient's decision. PAUL and PAUL Student met with patient to review the important message from Medicare. Patient reviewed and understood. Patient signed the form, social media coordinator made copies, placed original in chart and provided copy to patient. PAUL obtained transportation for patient to [facility] will be today at 1:30 pm. PAUL notified patient's nurse, Dr. Salguero and manager of community relations. PAUL contacted [facility] and notified Darryl that patient would transfer to [facility] today at 1:30 pm. Darryl expressed patient's car was missing from parking lot and wanted to confirm if a family member picked up the car. PAUL explained she was going to call the daughter and speak with her anyways and would check. Darryl expressed if the car was picked up by family, social media coordinator did not need to call her back. PAUL contacted Elaine, patient's daughter, whom expressed a family member picked up the vehicle. PAUL notified Elaine of discharge time. No questions at this time. PAUL met with patient and his daughter, Debi, and explained discharge time and explained if he needed clothing she could bring it over at discharge time. PAUL faxed discharge orders to [facility] and provided report number to patient's nurse. Discharge plan: [facility]- SNF
--- NOTE | 2023-12-02 13:57 | NUR ---
Pt transferred to [facility]. Nurse report given to Jacey. No further needs at this time.
== END 2023-12-02 13:45 | DRG 481 ==
LOC: COL.ER 01:52 → SURG 04:05
PROVIDERS: Internal Medicine; Orthopaedic Surgery; Physician Assistant; ADMIT Internal Medicine
PROC: 0QS606Z Reposition Right Upper Femur with Intramedullary Internal Fixation Device, Open Approach (ICD-10-PCS; principal; 2023-11-29 12:30)
DX: S72.141A Displaced intertrochanteric fracture of right femur, initial encounter for closed fracture (principal); I47.29 Other ventricular tachycardia; I50.22 Chronic systolic (congestive) heart failure; M48.56XA Collapsed vertebra, not elsewhere classified, lumbar region, initial encounter for fracture; M81.0 Age-related osteoporosis without current pathological fracture; G47.00 Insomnia, unspecified; F32.A Depression, unspecified; N40.0 Benign prostatic hyperplasia without lower urinary tract symptoms; K21.9 Gastro-esophageal reflux disease without esophagitis; I48.0 Paroxysmal atrial fibrillation; I11.0 Hypertensive heart disease with heart failure; I25.10 Atherosclerotic heart disease of native coronary artery without angina pectoris; I08.3 Combined rheumatic disorders of mitral, aortic and tricuspid valves; E78.00 Pure hypercholesterolemia, unspecified; K44.9 Diaphragmatic hernia without obstruction or gangrene; W18.39XA Other fall on same level, initial encounter; Y93.89 Activity, other specified; Y92.89 Other specified places as the place of occurrence of the external cause; Z95.0 Presence of cardiac pacemaker; Z79.82 Long term (current) use of aspirin; Z79.899 Other long term (current) drug therapy; Z79.01 Long term (current) use of anticoagulants; Z23 Encounter for immunization
CPT/HCPCS: A9284; C1713; C9113; J0690; J1100; J2250; J2371; J2405; J2704; J2795; J3010; J7030; J7040

== ENCOUNTER 2023-12-03 05:57 | Emergency (ER) | payer MEDICARE ==
[~2023-12-03 05:57] MED LIST changes: +ASPI325T6 PO; +CRESTOR 10MG10 MG PO; +DAZIDOX10 MG PO; +DOXYCYCLINE 10100 MG PO; +DUO-KAPS1 CAP PO; +ENTRESTO 24 MG1 EACH PO; +FLONASE NASAL S16 GM NS; +OSCAL 500 TAB500 MG PO; +PEPCID40 MG PO; +ROXICODONE 55 MG/TAB PO; +SENEXON-S 50-81 EACH PO; +TOPROL XL 25MG25 MG PO; +TYLENOL 500MG500 MG PO; +VITAMIN C500 MG PO
[2023-12-03] MEDS ORDERED: EPINEPHrine 1 MG/10 ML (1:10,000) SYRINGE IV ONE (06:00)
== END 2023-12-03 09:37 | disposition expired ==
LOC: COL.ER 05:57
DX: I46.9 Cardiac arrest, cause unspecified (principal)
CPT/HCPCS: J0171